=== PATIENT | male | born 1950 | race Caucasian/White ===

== ENCOUNTER 2018-02-24 12:58 | Inpatient (IN) | payer BC, MEDICARE ==
[2018-02-24] MEDS ORDERED: Ketorolac 30 MG/ML SDV IM STA (13:21)
--- NOTE | 2018-02-24 13:37 | EDM.PDOC ---
ED HPI GENERAL MEDICAL PROBLEM - General Chief Complaint: Back Pain or Injury Stated Complaint: FELL-INJURED RIBS Time Seen by Provider: 02/24/18 12:58 Source of Information: Reports: Patient, Family History Limitations: Reports: Physical Impairment, Respiratory Distress (right shoulder when taking a deep breath.) - History of Present Illness INITIAL COMMENTS - FREE TEXT/NARRATIVE: 67 years old w m with chronic low back pain, came to the ed with his by PC after he fell 8 feet from a ladder. Pt denied LOC, is not taking ASA or Coumadin. Worst pain is between his shoulders. No ant chest pain, no diaphoresis , no N/V/D no dizziness, pt took Hydrocodon and Ultram GAUGE CHECKER. No other acute medical issues. BP 132/71 RR 18 Pulse ox 97% on RA. Temp 36.8 Pulse 81 Onset: Today Onset Date: 02/24/18 Onset Time: 11:00 Duration: Hour(s):, Getting Worse, Intermittent Location: Reports: Chest, Upper Extremity, Right Quality: Reports: Ache, Dull, Throbbing Severity: Moderate Improves with: Reports: Rest Worsens with: Reports: Movement Context: Reports: Trauma (fell 10 feet from a ladder) Associated Symptoms: Reports: Chest Pain, Shortness of Breath Treatments GAUGE CHECKER: Reports: Other (see below) (hydrocodon) - Related Data Allergies Allergy/AdvReac Type Severity Reaction Status Date / Time Iodinated Contrast- Oral and Allergy Severe Bronchospas Verified 02/24/18 13:08 IV Dye ms [Iodinated Contrast Media - IV Dye] cephalexin Allergy Intermediate Hives Verified 02/24/18 13:08 mupirocin [From Bactroban] Allergy Unknown Cannot Verified 02/24/18 13:08 Remember Home Meds: Home Meds Acetaminophen/HYDROcodone [[place] 325-5 MG] 1 - 2 tab PO Q4H PRN 11/28/15 [ History] Chondroitin/Glucosamine [Glucosamine-Chondroitin] 1 cap PO BID 11/28/15 [History ] Desoximetasone [Topicort 0.25% Crm] 1 applic TOP BID 11/28/15 [History] Esomeprazole Magnesium [Nexium] 40 mg PO DAILY 11/28/15 [History] Meloxicam [Mobic] 7.5 mg PO BIDMEALS 11/28/15 [History] tiZANidine [Zanaflex] 4 mg PO Q8H 11/28/15 [History] traMADol [Ultram] 50 - 100 mg PO Q8H PRN 11/28/15 [History] Acetaminophen/Diphenhydramine [Tylenol Pm Ex-Strength Caplet] 1 each PO BEDTIME 11/29/15 [History] Past Medical History HEENT History: Reports: Impaired Vision Cardiovascular History: Reports: High Cholesterol Respiratory History: Reports: None Gastrointestinal History: Reports: Other (See Below) Other Gastrointestinal History: DYSPEPSIA Genitourinary History: Reports: None Musculoskeletal History: Reports: Back Pain, Chronic Neurological History: Reports: None Psychiatric History: Reports: None Endocrine/Metabolic History: Reports: None Hematologic History: Reports: Iron Deficiency Immunologic History: Reports: None Oncologic (Cancer) History: Reports: None Dermatologic History: Reports: None - Infectious Disease History Infectious Disease History: Reports: Chicken Pox, Measles, Mumps - Past Surgical History Neurological Surgical History: Reports: None, Other (See Below) Social & Family History - Caffeine Use Caffeine Use: Reports: Coffee, Soda ED ROS GENERAL - Review of Systems Review Of Systems: See Below Constitutional: Reports: No Symptoms HEENT: Reports: No Symptoms Respiratory: Reports: Shortness of Breath Cardiovascular: Reports: No Symptoms Endocrine: Reports: No Symptoms GI/Abdominal: Reports: No Symptoms : Reports: No Symptoms Musculoskeletal: Reports: Neck Pain, Shoulder Pain (right), Muscle Pain Skin: Reports: Lesions (abrasion right post chest) Neurological: Reports: No Symptoms Psychiatric: Reports: No Symptoms Hematologic/Lymphatic: Reports: No Symptoms Immunologic: Reports: No Symptoms ED EXAM, UPPER BACK/NECK PAIN - Physical Exam Exam: See Below Exam Limited By: Physical Impairment (right shoulder pain) General Appearance: Alert, Moderate Distress Eye Exam: Bilateral Eye: Normal Inspection Ears Exam: Normal External Exam, Normal Canal Nose Exam: Normal Inspection, Normal Mucousa, No Blood Throat/Mouth Exam: Normal Inspection, Normal Lips, Normal Voice, No Airway Compromise Head Exam: Atraumatic, Normocephalic Neck Exam: Non-Tender, Full Range of Motion, Limited Range of Motion Cardiovascular/Respiratory: Regular Rate, Rhythm GI/Abdominal: Normal Bowel Sounds (Male) Exam: No Hernia Rectal (Males) Exam: Deferred Back Exam: Normal Inspection, Decreased Range of Motion (right shoulder) Extremities: Normal Inspection, Limited Range of Motion (right shoulder due to pain) 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 Pt denied LOC, is not taking ASA or Coumadin. Worst pain is between his shoulders. No ant chest pain, no diaphoresis , no N/V/D no dizziness, pt took Hydrocodon and Ultram GAUGE CHECKER. No other acute medical issues. BP 132/71 RR 18 Pulse ox 97% on RA. Temp 36.8 Pulse 81 PE: WNWD WM with right chest wall, shoulder and upper back pain with decr. breath sounds right lung, Imaging: CT chest: Rib Fx 1-7 and 12, right scapula Fx and small/moderate right pneumothorax. CT Head and neck were nl. Labs: CBC nl except WBC was 14.7 BMP nl except BUN was 24, Cr 1.p Glc 122 CK 346 Impression: Fall from a ladder with Rib fxs 1-7 and 12. Small/Moderate right pneumothroax, right scapula Fx. Tx: Perccet. Toradol, Chest tube placement by Dr. Copeland 2.59 pm Consultation: Dr. Copeland, Trauma Surgeon: Will see the Pt in 20 min in the ED. 3.01 pm Consultation: Dr. Mcclellan, Ortho: Nothing surgical. Pt needs an shoulder immobilizer Reexam: Pt improved Plan: Admit to M/S inpatient. Dr. Copeland will write the admission orders. Family agreed Last Recorded V/S: Last Vital Signs Temp 36.9 C 02/24/18 16:32 Pulse 96 02/24/18 16:32 Resp 16 02/24/18 16:32 BP 135/77 02/24/18 16:32 Pulse Ox 96 02/24/18 16:32 - Orders/Labs/Meds Orders: Active Orders 24 hr Category Date Time Status Cervical Spine wo Cont [CT] Stat Exams 02/24/18 13:28 Taken Chest 1V Frontal [CR] Stat Exams 02/24/18 15:55 Taken Chest wo Cont [CT] Stat Exams 02/24/18 13:28 Taken Head wo Cont [CT] Stat Exams 02/24/18 13:35 Taken Medication Orders Desoximetasone (Topicort 0.25% Crm) 0 gm TOP BID [facility] Enoxaparin Sodium (Lovenox) 40 mg SUBCUT Q24H WHIT Hydromorphone HCl (Dilaudid) 2 mg IVPUSH Q2H PRN PRN Reason: Pain Last Admin: 02/24/18 17:29 Dose: 2 mg Ketorolac Tromethamine (Toradol) 30 mg IVPUSH Q6H WHIT Stop: 03/01/18 19:31 Pantoprazole Sodium (Protonix) 40 mg PO 0600 WHIT Sodium Chloride (Saline Flush) 10 ml FLUSH ASDIRECTED PRN PRN Reason: Keep Vein Open Last Admin: 02/24/18 17:33 Dose: 10 ml Tramadol HCl (Ultram) 50 mg PO Q8H PRN PRN Reason: Pain (moderate 4-6) Last Admin: 02/24/18 17:08 Dose: 50 mg Labs: Laboratory Tests 02/24/18 02/24/18 02/24/18 Range/Units 14:25 15:02 15:02 WBC 14.9 H (4.5-12.0) X10-3/uL RBC 4.81 (4.30-5.75) x10(6)uL Hgb 14.8 (11.5-15.5) g/dL Hct 43.2 (30.0-51.3) % MCV 89.8 (80-96) fL MCH 30.7 (27.7-33.6) pg MCHC 34.3 (32.2-35.4) g/dL RDW 12.7 (11.5-15.5) % Plt Count 181 (125-369) X10(3)uL MPV 8.1 (7.4-10.4) fL Add Manual Diff Yes Neutrophils % (Manual) 82 (46-82) % Band Neutrophils % 5 (0-6) % Lymphocytes % (Manual) 9 L (13-37) % Monocytes % (Manual) 4 (4-12) % PT 10.4 (8.7-11.1) INR 1.07 (0.89-1.13) Sodium (135-145) mmol/L Potassium (3.5-5.3) mmol/L Chloride (100-110) mmol/L Carbon Dioxide (21-32) mmol/L BUN (7-18) mg/dL Creatinine (0.70-1.30) mg/dL Est Cr Clr Drug Dosing Estimated GFR (MDRD) (>60) BUN/Creatinine Ratio (9-20) Glucose (80-116) mg/dL Calcium (8.6-10.2) mg/dL Creatine Kinase (60-160) IU/L Urine Color Yellow (YELLOW) Urine Appearance Slightly cloudy (CLEAR) Urine pH 7.0 H (5.0-6.5) Ur Specific [place] 1.015 (1.010-1.025) Urine Protein Negative (NEGATIVE) mg/dL Urine Glucose (UA) Normal (NEGATIVE) mg/dL Urine Ketones Negative (NEGATIVE) mg/dL Urine Occult Blood Negative (NEGATIVE) Urine Nitrite Negative (NEGATIVE) Urine Bilirubin Negative (NEGATIVE) Urine Urobilinogen Normal (NEGATIVE) mg/dL Ur Leukocyte Esterase Negative (NEGATIVE) Urine RBC 0-5 (0) Urine WBC 0-5 (0) Ur Squamous Epith Cells Rare (NS,R,O) Urine Bacteria Few H (NS) Coarse Granular Casts Few H (NS) 02/24/18 02/24/18 Range/Units 15:02 15:02 WBC (4.5-12.0) X10-3/uL RBC (4.30-5.75) x10(6)uL Hgb (11.5-15.5) g/dL Hct (30.0-51.3) % MCV (80-96) fL MCH (27.7-33.6) pg MCHC (32.2-35.4) g/dL RDW (11.5-15.5) % Plt Count (125-369) X10(3)uL MPV (7.4-10.4) fL Add Manual Diff Neutrophils % (Manual) (46-82) % Band Neutrophils % (0-6) % Lymphocytes % (Manual) (13-37) % Monocytes % (Manual) (4-12) % PT (8.7-11.1) INR (0.89-1.13) Sodium 137 (135-145) mmol/L Potassium 4.4 (3.5-5.3) mmol/L Chloride 101 (100-110) mmol/L Carbon Dioxide 29 (21-32) mmol/L BUN 27 H (7-18) mg/dL Creatinine 1.0 (0.70-1.30) mg/dL Est Cr Clr Drug Dosing TNP Estimated GFR (MDRD) > 60 (>60) BUN/Creatinine Ratio 27.0 H (9-20) Glucose 122 H (80-116) mg/dL Calcium 9.0 (8.6-10.2) mg/dL Creatine Kinase 361 H* (60-160) IU/L Urine Color (YELLOW) Urine Appearance (CLEAR) Urine pH (5.0-6.5) Ur Specific [place]amps (1.010-1.025) Urine Protein (NEGATIVE) mg/dL Urine Glucose (UA) (NEGATIVE) mg/dL Urine Ketones (NEGATIVE) mg/dL Urine Occult Blood (NEGATIVE) Urine Nitrite (NEGATIVE) Urine Bilirubin (NEGATIVE) Urine Urobilinogen (NEGATIVE) mg/dL Ur Leukocyte Esterase (NEGATIVE) Urine RBC (0) Urine WBC (0) Ur Squamous Epith Cells (NS,R,O) Urine Bacteria (NS) Coarse Granular Casts (NS) Meds: Medications Generic Name Dose Route Start Last Admin Trade Name Freq PRN Reason Stop Dose Admin Desoximetasone 0 gm 02/25/18 09:00 Topicort 0.25% Crm TOP BID WHIT Enoxaparin Sodium 40 mg 02/25/18 09:00 Lovenox SUBCUT Q24H WHIT Hydromorphone HCl 2 mg 02/24/18 16:30 02/24/18 17:29 Dilaudid IVPUSH 2 mg Q2H PRN Administration Pain Ketorolac Tromethamine 30 mg 02/24/18 19:30 Toradol IVPUSH 03/01/18 19:31 Q6H WHIT Pantoprazole Sodium 40 mg 02/25/18 06:00 Protonix PO 0600 WHIT Sodium Chloride 10 ml 02/24/18 16:13 02/24/18 17:33 Saline Flush FLUSH 10 ml ASDIRECTED PRN Administration Keep Vein Open Tramadol HCl 50 mg 02/24/18 16:21 02/24/18 17:08 Ultram PO 50 mg Q8H PRN Administration Pain (moderate 4-6) Discontinued Medications Generic Name Dose Route Start Last Admin Trade Name Freq PRN Reason Stop Dose Admin Ketorolac Tromethamine 15 mg 02/24/18 13:21 02/24/18 13:35 Toradol IM 02/24/18 13:22 15 mg ONETIME STA Administration Oxycodone/Acetaminophen 1 tab 02/24/18 14:14 02/24/18 14:20 Percocet 325-5 Mg PO 02/24/18 14:15 1 tab ONETIME STA Administration Departure - Departure Time of Disposition: 17:00 Disposition: Admitted As Inpatient 66 Condition: Fair Clinical Impression: Trauma - Discharge Information - My Orders Last 24 Hours: My Active Orders 02/24/18 13:28 Cervical Spine wo Cont [CT] Stat Chest wo Cont [CT] Stat 02/24/18 13:35 Head wo Cont [CT] Stat 02/24/18 15:55 Chest 1V Frontal [CR] Stat - Assessment/Plan Last 24 Hours: My Active Orders 02/24/18 13:28 Cervical Spine wo Cont [CT] Stat Chest wo Cont [CT] Stat 02/24/18 13:35 Head wo Cont [CT] Stat 02/24/18 15:55 Chest 1V Frontal [CR] Stat
[2018-02-24] MEDS ORDERED: Acetaminophen/oxyCODONE 325-5 MG Tab PO STA (14:14)
[2018-02-24] MEDS: traMADol 50 MG Tab PO PRN (17:08)
[2018-02-24] MEDS: HYDROmorphone 2 MG/ML SDV IVPUSH PRN ×2 (17:29→22:25)
[2018-02-24] MEDS: Sodium Chloride 0.9% 10 ML Syringe FLUSH PRN ×3 (17:33→22:26)
[2018-02-24] MEDS: Ketorolac 30 MG/ML SDV IVPUSH SCH (20:07)
[2018-02-24] MEDS ORDERED: Non-Formulary Medication 1 Each (Esomeprazole Magnesium [Nexium] 40 MG) PO SCH (21:00)
[2018-02-25] MEDS: traMADol 50 MG Tab PO PRN ×2 (01:18→09:42)
[2018-02-25] MEDS: Ketorolac 30 MG/ML SDV IVPUSH SCH ×4 (01:23→19:13)
[2018-02-25] MEDS: Sodium Chloride 0.9% 10 ML Syringe FLUSH PRN ×5 (01:25→21:08)
[2018-02-25] MEDS: HYDROmorphone 2 MG/ML SDV IVPUSH PRN ×4 (04:31→21:07)
[2018-02-25] MEDS: Pantoprazole 40 MG Tab.CR PO SCH (05:24)
[2018-02-25] MEDS: Enoxaparin 40 MG/0.4 ML Syringe SUBCUT SCH (08:17)
[2018-02-25] MEDS ORDERED: DESOXIMETASONE 0.25% TOP SCH (09:00)
--- NOTE | 2018-02-25 15:06 | PCM.HP ---
H&P History of Present Illness - General Date of Service: 02/24/18 Admit Problem/Dx: Admission Diagnosis/Problem Admission Diagnosis/Problem Pneumothorax on right Source of Information: Patient, Family History Limitations: Reports: No Limitations - History of Present Illness Onset of Symptoms: Reports: Today Duration of Symptoms: Reports: Hour(s): (3) Location: Reports: Chest (pain and SOB after falling 8 feet from ladder and landing on right shoulder area) Quality: Reports: Sharp Severity: Severe Improves with: Reports: Medication Worsens with: Reports: Movement right side chest Pain Score (Numeric/FACES): 10 - Related Data Allergies/Adverse Reactions: Allergies Allergy/AdvReac Type Severity Reaction Status Date / Time Iodinated Contrast- Oral and Allergy Severe Bronchospas Verified 02/24/18 13:08 IV Dye ms [Iodinated Contrast Media - IV Dye] cephalexin Allergy Intermediate Hives Verified 02/24/18 13:08 mupirocin [From Bactroban] Allergy Unknown Cannot Verified 02/24/18 13:08 Remember Home Medications: Home Meds Acetaminophen/HYDROcodone [[place] 325-5 MG] 1 tab PO BID@02,12 PRN 11/28/15 [ History] Chondroitin/Glucosamine [Glucosamine-Chondroitin] 1 cap PO BID 11/28/15 [History ] Desoximetasone [Topicort 0.25% Crm] 1 applic TOP BID 11/28/15 [History] Esomeprazole Magnesium [Nexium] 40 mg PO DAILY 11/28/15 [History] Meloxicam [Mobic] 15 mg PO BEDTIME 11/28/15 [History] tiZANidine [Zanaflex] 4 mg PO Q8H 11/28/15 [History] traMADol [Ultram] 100 mg PO TID@06,18,21 11/28/15 [History] Acetaminophen/Diphenhydramine [Tylenol Pm Ex-Strength Caplet] 1 each PO BEDTIME 11/29/15 [History] Acetaminophen/HYDROcodone [[place] 325-5 MG] 1 tab PO DAILY PRN 02/25/18 [History] Ibuprofen/Diphenhydramine Cit [Advil Pm Caplet] 1 tab PO BEDTIME PRN 02/25/18 [ History] Past Medical History HEENT History: Reports: Impaired Vision Cardiovascular History: Reports: High Cholesterol Respiratory History: Reports: None Gastrointestinal History: Reports: Other (See Below) Other Gastrointestinal History: DYSPEPSIA Genitourinary History: Reports: None Musculoskeletal History: Reports: Back Pain, Chronic Neurological History: Reports: None Psychiatric History: Reports: None Endocrine/Metabolic History: Reports: None Hematologic History: Reports: Iron Deficiency Immunologic History: Reports: None Oncologic (Cancer) History: Reports: None Dermatologic History: Reports: None - Infectious Disease History Infectious Disease History: Reports: Chicken Pox, Measles, Mumps - Past Surgical History Neurological Surgical History: Reports: None, Other (See Below) Social & Family History - Family History Family Medical History: Noncontributory - Tobacco Use Smoking Status *Q: Never Smoker Second Hand Smoke Exposure: No - Caffeine Use Caffeine Use: Reports: Coffee, Soda Other Caffeine Use: 1 cup - Recreational Drug Use Recreational Drug Use: No H&P Review of Systems - Review of Systems: Review Of Systems: See Below General: Reports: No Symptoms HEENT: Reports: No Symptoms Pulmonary: Reports: Shortness of Breath Cardiovascular: Reports: Chest Pain Gastrointestinal: Reports: No Symptoms Genitourinary: Reports: No Symptoms Musculoskeletal: Reports: Back Pain (chronic) Neurological: Reports: No Symptoms Exam - Exam Exam: See Below - Vital Signs Vital Signs: Last Vital Signs Temp 99.1 F 02/25/18 12:00 Pulse 80 02/25/18 12:00 Resp 17 02/25/18 12:00 BP 119/68 02/25/18 12:00 Pulse Ox 97 02/25/18 12:00 Weight: 87.997 kg - Exam General: Alert, Oriented HEENT: PERRLA Neck: Supple, Trachea Midline. No: JVD Lungs: Decreased Breath Sounds (on right), Other (Right chest wall is tender laterally, has bruise and abrasion where he landed on ladder) Cardiovascular: Regular Rate, Regular Rhythm GI/Abdominal Exam: Soft, Non-Tender, No Mass. No: Distended, Hernia Neurological: Cranial Nerves Intact Neuro Extensive - Mental Status: Alert, Oriented x3 - Patient Data Lab Results Last 24 hrs: Laboratory Results - last 24 hr 02/24/18 02/24/18 02/24/18 Range/Units 14:25 15:02 15:02 WBC 14.9 H (4.5-12.0) X10-3/uL RBC 4.81 (4.30-5.75) x10(6)uL Hgb 14.8 (11.5-15.5) g/dL Hct 43.2 (30.0-51.3) % MCV 89.8 (80-96) fL MCH 30.7 (27.7-33.6) pg MCHC 34.3 (32.2-35.4) g/dL RDW 12.7 (11.5-15.5) % Plt Count 181 (125-369) X10(3)uL MPV 8.1 (7.4-10.4) fL Add Manual Diff Yes Neutrophils % (Manual) 82 (46-82) % Band Neutrophils % 5 (0-6) % Lymphocytes % (Manual) 9 L (13-37) % Monocytes % (Manual) 4 (4-12) % PT 10.4 (8.7-11.1) INR 1.07 (0.89-1.13) Sodium (135-145) mmol/L Potassium (3.5-5.3) mmol/L Chloride (100-110) mmol/L Carbon Dioxide (21-32) mmol/L BUN (7-18) mg/dL Creatinine (0.70-1.30) mg/dL Est Cr Clr Drug Dosing Estimated GFR (MDRD) (>60) BUN/Creatinine Ratio (9-20) Glucose (80-116) mg/dL Calcium (8.6-10.2) mg/dL Creatine Kinase (60-160) IU/L Urine Color Yellow (YELLOW) Urine Appearance Slightly cloudy (CLEAR) Urine pH 7.0 H (5.0-6.5) Ur Specific [place] 1.015 (1.010-1.025) Urine Protein Negative (NEGATIVE) mg/dL Urine Glucose (UA) Normal (NEGATIVE) mg/dL Urine Ketones Negative (NEGATIVE) mg/dL Urine Occult Blood Negative (NEGATIVE) Urine Nitrite Negative (NEGATIVE) Urine Bilirubin Negative (NEGATIVE) Urine Urobilinogen Normal (NEGATIVE) mg/dL Ur Leukocyte Esterase Negative (NEGATIVE) Urine RBC 0-5 (0) Urine WBC 0-5 (0) Ur Squamous Epith Cells Rare (NS,R,O) Urine Bacteria Few H (NS) Coarse Granular Casts Few H (NS) 02/24/18 02/24/18 02/25/18 Range/Units 15:02 15:02 06:20 WBC 8.2 (4.5-12.0) X10-3/uL RBC 4.18 L (4.30-5.75) x10(6)uL Hgb 13.2 (11.5-15.5) g/dL Hct 37.9 (30.0-51.3) % MCV 90.8 (80-96) fL MCH 31.6 (27.7-33.6) pg MCHC 34.8 (32.2-35.4) g/dL RDW 12.5 (11.5-15.5) % Plt Count 153 (125-369) X10(3)uL MPV (7.4-10.4) fL Add Manual Diff Neutrophils % (Manual) (46-82) % Band Neutrophils % (0-6) % Lymphocytes % (Manual) (13-37) % Monocytes % (Manual) (4-12) % PT (8.7-11.1) INR (0.89-1.13) Sodium 137 (135-145) mmol/L Potassium 4.4 (3.5-5.3) mmol/L Chloride 101 (100-110) mmol/L Carbon Dioxide 29 (21-32) mmol/L BUN 27 H (7-18) mg/dL Creatinine 1.0 (0.70-1.30) mg/dL Est Cr Clr Drug Dosing TNP Estimated GFR (MDRD) > 60 (>60) BUN/Creatinine Ratio 27.0 H (9-20) Glucose 122 H (80-116) mg/dL Calcium 9.0 (8.6-10.2) mg/dL Creatine Kinase 361 H* (60-160) IU/L Urine Color (YELLOW) Urine Appearance (CLEAR) Urine pH (5.0-6.5) Ur Specific [place] (1.010-1.025) Urine Protein (NEGATIVE) mg/dL Urine Glucose (UA) (NEGATIVE) mg/dL Urine Ketones (NEGATIVE) mg/dL Urine Occult Blood (NEGATIVE) Urine Nitrite (NEGATIVE) Urine Bilirubin (NEGATIVE) Urine Urobilinogen (NEGATIVE) mg/dL Ur Leukocyte Esterase (NEGATIVE) Urine RBC (0) Urine WBC (0) Ur Squamous Epith Cells (NS,R,O) Urine Bacteria (NS) Coarse Granular Casts (NS) Result Diagrams: 02/25/18 06:20 02/24/18 15:02 Imaging Impressions Last 24 hrs: CT scan of head and neck without acute injury. CT Chest shows multiple rib fx and moderate PTX on right Problem List Initiated/Reviewed/Updated: Yes Orders Last 24hrs: Active Orders 24 hr Category Date Time Status Patient Status [ADT] Routine ADT 02/24/18 16:14 Active Antiembolic Devices [RC] .Routine Care 02/24/18 16:17 Active Oxygen Therapy [RC] PRN Care 02/24/18 16:14 Active RT Incentive Spirometry [RC] Q2HWA Care 02/24/18 16:13 Active Up With Assistance [RC] ASDIRECTED Care 02/24/18 16:13 Active VTE/DVT Education [RC] Click to Edit Care 02/24/18 16:17 Active Vital Signs [RC] Q4HR Care 02/24/18 16:14 Active Regular Diet [DIET] Diet 02/24/18 Dinner Active CXR [Chest 1V Frontal] [CR] Stat Exams 02/26/18 07:00 Ordered Chest 1V Frontal [CR] Stat Exams 02/24/18 15:55 Taken Enoxaparin [Lovenox] Med 02/25/18 09:00 Active 40 mg SUBCUT Q24H HYDROmorphone [Dilaudid] Med 02/24/18 16:30 Active 2 mg IVPUSH Q2H PRN Ketorolac [Toradol] Med 02/24/18 19:30 Active 30 mg IVPUSH Q6H Pantoprazole [ProTONIX] Med 02/25/18 06:00 Active 40 mg PO 0600 Sodium Chloride 0.9% [Saline Flush] Med 02/24/18 16:13 Active 10 ml FLUSH ASDIRECTED PRN traMADol [Ultram] Med 02/24/18 16:21 Active 50 mg PO Q8H PRN DVT/VTE Prophylaxis Reflex [OM.PC] Per Unit Routine Oth 02/24/18 16:17 Ordered Sequential Compression Device [OM.PC] Routine Oth 02/24/18 16:13 Ordered Resuscitation Status Routine Resus Stat 02/24/18 16:13 Ordered Medication Orders Enoxaparin Sodium (Lovenox) 40 mg SUBCUT Q24H WHIT Last Admin: 02/25/18 08:17 Dose: 40 mg Hydromorphone HCl (Dilaudid) 2 mg IVPUSH Q2H PRN PRN Reason: Pain Last Admin: 02/25/18 10:37 Dose: 2 mg Admin: 02/25/18 04:31 Dose: 2 mg Admin: 02/24/18 22:25 Dose: 2 mg Admin: 02/24/18 17:29 Dose: 2 mg Ketorolac Tromethamine (Toradol) 30 mg IVPUSH Q6H WHIT Stop: 03/01/18 19:31 Last Admin: 02/25/18 12:50 Dose: 30 mg Admin: 02/25/18 06:30 Dose: 30 mg Admin: 02/25/18 01:23 Dose: 30 mg Admin: 02/24/18 20:07 Dose: 30 mg Pantoprazole Sodium (Protonix) 40 mg PO 0600 [facility] Last Admin: 02/25/18 05:24 Dose: 40 mg Sodium Chloride (Saline Flush) 10 ml FLUSH ASDIRECTED PRN PRN Reason: Keep Vein Open Last Admin: 02/25/18 06:30 Dose: 10 ml Admin: 02/25/18 04:32 Dose: 10 ml Admin: 02/25/18 01:25 Dose: 10 ml Admin: 02/24/18 22:26 Dose: 10 ml Admin: 02/24/18 20:09 Dose: 10 ml Admin: 02/24/18 17:33 Dose: 10 ml Tramadol HCl (Ultram) 50 mg PO Q8H PRN PRN Reason: Pain (moderate 4-6) Last Admin: 02/25/18 09:42 Dose: 50 mg Admin: 02/25/18 01:18 Dose: 50 mg Admin: 02/24/18 17:08 Dose: 50 mg Assessment/Plan Comment:: Fall with multiple right rib fractures and pneumothorax Will admit for Chest tube and pain management
--- NOTE | 2018-02-25 15:14 | PCM.PN ---
- General Info Date of Service: 02/25/18 Admission Dx/Problem (Free Text): Admission Diagnosis/Problem Admission Diagnosis/Problem Pneumothorax on right Functional Status: Reports: Pain Controlled, Tolerating Diet, Urinating, Incentive Spirometry (over 1999) - Review of Systems Pulmonary: Reports: Pleuritic Chest Pain, Other (red sorous drainage from CT, no air leak) Cardiovascular: Reports: Chest Pain (with deep breathing or moving, adequately controlled on current meds) Gastrointestinal: Reports: No Symptoms - Patient Data Vitals - Most Recent: Last Vital Signs Temp 99.1 F 02/25/18 12:00 Pulse 80 02/25/18 12:00 Resp 17 02/25/18 12:00 BP 119/68 02/25/18 12:00 Pulse Ox 97 02/25/18 12:00 Weight - Most Recent: 87.997 kg I&O - Last 24 Hours: Intake & Output 02/25/18 02/25/18 02/25/18 06:59 14:59 22:59 Intake Total 200 800 Output Total 150 300 Balance 50 500 Lab Results Last 24 Hours: Laboratory Results - last 24 hr 02/24/18 02/24/18 02/24/18 Range/Units 14:25 15:02 15:02 WBC 14.9 H (4.5-12.0) X10-3/uL RBC 4.81 (4.30-5.75) x10(6)uL Hgb 14.8 (11.5-15.5) g/dL Hct 43.2 (30.0-51.3) % MCV 89.8 (80-96) fL MCH 30.7 (27.7-33.6) pg MCHC 34.3 (32.2-35.4) g/dL RDW 12.7 (11.5-15.5) % Plt Count 181 (125-369) X10(3)uL MPV 8.1 (7.4-10.4) fL Add Manual Diff Yes Neutrophils % (Manual) 82 (46-82) % Band Neutrophils % 5 (0-6) % Lymphocytes % (Manual) 9 L (13-37) % Monocytes % (Manual) 4 (4-12) % PT 10.4 (8.7-11.1) INR 1.07 (0.89-1.13) Sodium (135-145) mmol/L Potassium (3.5-5.3) mmol/L Chloride (100-110) mmol/L Carbon Dioxide (21-32) mmol/L BUN (7-18) mg/dL Creatinine (0.70-1.30) mg/dL Est Cr Clr Drug Dosing Estimated GFR (MDRD) (>60) BUN/Creatinine Ratio (9-20) Glucose (80-116) mg/dL Calcium (8.6-10.2) mg/dL Creatine Kinase (60-160) IU/L Urine Color Yellow (YELLOW) Urine Appearance Slightly cloudy (CLEAR) Urine pH 7.0 H (5.0-6.5) Ur Specific [place] 1.015 (1.010-1.025) Urine Protein Negative (NEGATIVE) mg/dL Urine Glucose (UA) Normal (NEGATIVE) mg/dL Urine Ketones Negative (NEGATIVE) mg/dL Urine Occult Blood Negative (NEGATIVE) Urine Nitrite Negative (NEGATIVE) Urine Bilirubin Negative (NEGATIVE) Urine Urobilinogen Normal (NEGATIVE) mg/dL Ur Leukocyte Esterase Negative (NEGATIVE) Urine RBC 0-5 (0) Urine WBC 0-5 (0) Ur Squamous Epith Cells Rare (NS,R,O) Urine Bacteria Few H (NS) Coarse Granular Casts Few H (NS) 02/24/18 02/24/18 02/25/18 Range/Units 15:02 15:02 06:20 WBC 8.2 (4.5-12.0) X10-3/uL RBC 4.18 L (4.30-5.75) x10(6)uL Hgb 13.2 (11.5-15.5) g/dL Hct 37.9 (30.0-51.3) % MCV 90.8 (80-96) fL MCH 31.6 (27.7-33.6) pg MCHC 34.8 (32.2-35.4) g/dL RDW 12.5 (11.5-15.5) % Plt Count 153 (125-369) X10(3)uL MPV (7.4-10.4) fL Add Manual Diff Neutrophils % (Manual) (46-82) % Band Neutrophils % (0-6) % Lymphocytes % (Manual) (13-37) % Monocytes % (Manual) (4-12) % PT (8.7-11.1) INR (0.89-1.13) Sodium 137 (135-145) mmol/L Potassium 4.4 (3.5-5.3) mmol/L Chloride 101 (100-110) mmol/L Carbon Dioxide 29 (21-32) mmol/L BUN 27 H (7-18) mg/dL Creatinine 1.0 (0.70-1.30) mg/dL Est Cr Clr Drug Dosing TNP Estimated GFR (MDRD) > 60 (>60) BUN/Creatinine Ratio 27.0 H (9-20) Glucose 122 H (80-116) mg/dL Calcium 9.0 (8.6-10.2) mg/dL Creatine Kinase 361 H* (60-160) IU/L Urine Color (YELLOW) Urine Appearance (CLEAR) Urine pH (5.0-6.5) Ur Specific [place] (1.010-1.025) Urine Protein (NEGATIVE) mg/dL Urine Glucose (UA) (NEGATIVE) mg/dL Urine Ketones (NEGATIVE) mg/dL Urine Occult Blood (NEGATIVE) Urine Nitrite (NEGATIVE) Urine Bilirubin (NEGATIVE) Urine Urobilinogen (NEGATIVE) mg/dL Ur Leukocyte Esterase (NEGATIVE) Urine RBC (0) Urine WBC (0) Ur Squamous Epith Cells (NS,R,O) Urine Bacteria (NS) Coarse Granular Casts (NS) Med Orders - Current: Current Medications Enoxaparin Sodium (Lovenox) 40 mg SUBCUT Q24H [facility] Last Admin: 02/25/18 08:17 Dose: 40 mg Hydromorphone HCl (Dilaudid) 2 mg IVPUSH Q2H PRN PRN Reason: Pain Last Admin: 02/25/18 10:37 Dose: 2 mg Ketorolac Tromethamine (Toradol) 30 mg IVPUSH Q6H [facility] Stop: 03/01/18 19:31 Last Admin: 02/25/18 12:50 Dose: 30 mg Pantoprazole Sodium (Protonix) 40 mg PO 0600 [facility] Last Admin: 02/25/18 05:24 Dose: 40 mg Sodium Chloride (Saline Flush) 10 ml FLUSH ASDIRECTED PRN PRN Reason: Keep Vein Open Last Admin: 02/25/18 06:30 Dose: 10 ml Tramadol HCl (Ultram) 50 mg PO Q8H PRN PRN Reason: Pain (moderate 4-6) Last Admin: 02/25/18 09:42 Dose: 50 mg Discontinued Medications Desoximetasone (Topicort 0.25% Crm) 0 gm TOP BID WHIT Last Admin: 02/25/18 10:22 Dose: Not Given Ketorolac Tromethamine (Toradol) 15 mg IM ONETIME STA Stop: 02/24/18 13:22 Last Admin: 02/24/18 13:35 Dose: 15 mg Oxycodone/Acetaminophen (Percocet 325-5 Mg) 1 tab PO ONETIME STA Stop: 02/24/18 14:15 Last Admin: 02/24/18 14:20 Dose: 1 tab - Exam General: Alert, Oriented Lungs: Clear to Auscultation Cardiovascular: Regular Rate, Regular Rhythm GI/Abdominal Exam: Soft, Non-Tender - Problem List Review Problem List Initiated/Reviewed/Updated: Yes - My Orders Last 24 Hours: My Active Orders 02/24/18 16:13 RT Incentive Spirometry [RC] Q2HWA Up With Assistance [RC] ASDIRECTED Sodium Chloride 0.9% [Saline Flush] 10 ml FLUSH ASDIRECTED PRN Sequential Compression Device [OM.PC] Routine Resuscitation Status Routine 02/24/18 16:14 Patient Status [ADT] Routine Oxygen Therapy [RC] PRN Vital Signs [RC] Q4HR 02/24/18 16:17 Antiembolic Devices [RC] .Routine VTE/DVT Education [RC] Click to Edit DVT/VTE Prophylaxis Reflex [OM.PC] Per Unit Routine 02/24/18 16:21 traMADol [Ultram] 50 mg PO Q8H PRN 02/24/18 16:30 HYDROmorphone [Dilaudid] 2 mg IVPUSH Q2H PRN 02/24/18 19:30 Ketorolac [Toradol] 30 mg IVPUSH Q6H 02/24/18 Dinner Regular Diet [DIET] 02/25/18 06:00 Pantoprazole [ProTONIX] 40 mg PO 0600 02/25/18 09:00 Enoxaparin [Lovenox] 40 mg SUBCUT Q24H 02/26/18 07:00 CXR [Chest 1V Frontal] [CR] Stat - Plan Plan:: Fall with multiple right rib fractures and pneumothorax Will admit for Chest tube and pain management Cont current care, recheck CRX in am
[2018-02-25] MEDS: traMADol 50 MG Tab PO SCH ×2 (17:41→23:11)
--- NOTE | 2018-02-25 21:49 | OR ---
DATE OF OPERATION: 02/24/2018 SURGEON: Clovis Copeland MD PREOPERATIVE DIAGNOSIS: Right pneumothorax. POSTOPERATIVE DIAGNOSIS: Right pneumothorax. PROCEDURE: Insertion of chest tube, right. ANESTHESIA: Local. PROCEDURE IN DETAIL: In the emergency room with the patient lying in his left side and arm raised, the right lateral chest wall was prepped with Betadine and draped sterilely. 1% lidocaine was used for local anesthesia. A small incision was made at the level of the nipple in the anterior axillary line. The 25-gauge needle was used to anesthetize between the ribs, and I was able to aspirate back air bubbles. A hemostat was inserted and a gush of air present. A 26-Tunisian chest tube was inserted with good air return. Chest tube was secured to the skin with 0 Ethilon. Vaseline gauze and a dressing were applied. Chest tube was hooked to suction. Postprocedure chest x-ray shows good position of the tube and resolution of the pneumothorax. /[id number] SILVER/LIANA
[2018-02-26] MEDS: Ketorolac 30 MG/ML SDV IVPUSH SCH ×4 (01:19→19:49)
[2018-02-26] MEDS: Sodium Chloride 0.9% 10 ML Syringe FLUSH PRN ×7 (01:20→19:51)
[2018-02-26] MEDS: HYDROmorphone 2 MG/ML SDV IVPUSH PRN ×3 (04:40→12:52)
[2018-02-26] MEDS: Pantoprazole 40 MG Tab.CR PO SCH (06:19)
[2018-02-26] MEDS: traMADol 50 MG Tab PO SCH ×3 (06:19→22:07)
[2018-02-26] MEDS: Enoxaparin 40 MG/0.4 ML Syringe SUBCUT SCH (08:48)
[2018-02-26] MEDS ORDERED: Docusate Sodium 100 MG Cap PO PRN (15:17)
--- NOTE | 2018-02-26 15:36 | PCM.SURGPN ---
- General Info Date of Service: 02/26/18 Functional Status: Reports: Pain Controlled, Tolerating Diet, Ambulating - Review of Systems General: Reports: No Symptoms Pulmonary: Denies: Shortness of Breath Cardiovascular: Reports: Chest Pain (with coughing and movement) - Patient Data Vitals - Most Recent: Last Vital Signs Temp 97.7 F 02/26/18 12:40 Pulse 94 02/26/18 12:40 Resp 18 02/26/18 12:40 BP 111/66 02/26/18 12:40 Pulse Ox 96 02/26/18 12:40 Weight - Most Recent: 87.997 kg I&O - Last 24 Hours: Intake & Output 02/26/18 02/26/18 02/26/18 06:59 14:59 22:59 Intake Total 150 Output Total 556 51 Balance -406 -51 Med Orders - Current: Current Medications Docusate Sodium (Colace) 100 mg PO BID PRN PRN Reason: Constipation Enoxaparin Sodium (Lovenox) 40 mg SUBCUT Q24H [facility] Last Admin: 02/26/18 08:48 Dose: 40 mg Hydromorphone HCl (Dilaudid) 2 mg IVPUSH Q2H PRN PRN Reason: Pain Last Admin: 02/26/18 12:52 Dose: 2 mg Ketorolac Tromethamine (Toradol) 30 mg IVPUSH Q6H [facility] Stop: 03/01/18 19:31 Last Admin: 02/26/18 15:20 Dose: 30 mg Pantoprazole Sodium (Protonix) 40 mg PO 0600 [facility] Last Admin: 02/26/18 06:19 Dose: 40 mg Sodium Chloride (Saline Flush) 10 ml FLUSH ASDIRECTED PRN PRN Reason: Keep Vein Open Last Admin: 02/26/18 15:20 Dose: 10 ml Tramadol HCl (Ultram) 100 mg PO TID@0600,1800,2300 [facility] Last Admin: 02/26/18 06:19 Dose: 100 mg Discontinued Medications Desoximetasone (Topicort 0.25% Crm) 0 gm TOP BID [facility] Last Admin: 02/25/18 10:22 Dose: Not Given Ketorolac Tromethamine (Toradol) 15 mg IM ONETIME STA Stop: 02/24/18 13:22 Last Admin: 02/24/18 13:35 Dose: 15 mg Oxycodone/Acetaminophen (Percocet 325-5 Mg) 1 tab PO ONETIME STA Stop: 02/24/18 14:15 Last Admin: 02/24/18 14:20 Dose: 1 tab Tramadol HCl (Ultram) 50 mg PO Q8H PRN PRN Reason: Pain (moderate 4-6) Last Admin: 02/25/18 09:42 Dose: 50 mg - Exam General: Alert, Oriented Lungs: Clear to Auscultation, Decreased Breath Sounds, Other (No air leak) - Problem List Review Problem List Initiated/Reviewed/Updated: Yes - My Orders Last 24 Hours: Active Orders 24 hr Category Date Time Status Chest Tube Management [RC] Q4HR Care 02/26/18 15:32 Ordered CXR [Chest 1V Frontal] [CR] Routine Exams 02/27/18 08:00 Ordered CXR [Chest 1V Frontal] [CR] Stat Exams 02/26/18 07:00 Taken Docusate Sodium [Colace] Med 02/26/18 15:17 Active 100 mg PO BID PRN traMADol [Ultram] Med 02/25/18 18:00 Active 100 mg PO TID@0600,1800,2300 Medication Orders Docusate Sodium (Colace) 100 mg PO BID PRN PRN Reason: Constipation Enoxaparin Sodium (Lovenox) 40 mg SUBCUT Q24H [facility] Last Admin: 02/26/18 08:48 Dose: 40 mg Admin: 02/25/18 08:17 Dose: 40 mg Hydromorphone HCl (Dilaudid) 2 mg IVPUSH Q2H PRN PRN Reason: Pain Last Admin: 02/26/18 12:52 Dose: 2 mg Admin: 02/26/18 10:33 Dose: 2 mg Admin: 02/26/18 04:40 Dose: 2 mg Admin: 02/25/18 21:07 Dose: 2 mg Admin: 02/25/18 15:23 Dose: 2 mg Admin: 02/25/18 10:37 Dose: 2 mg Admin: 02/25/18 04:31 Dose: 2 mg Admin: 02/24/18 22:25 Dose: 2 mg Admin: 02/24/18 17:29 Dose: 2 mg Ketorolac Tromethamine (Toradol) 30 mg IVPUSH Q6H [facility] Stop: 03/01/18 19:31 Last Admin: 02/26/18 15:20 Dose: 30 mg Admin: 02/26/18 07:20 Dose: 30 mg Admin: 02/26/18 01:19 Dose: 30 mg Admin: 02/25/18 19:13 Dose: 30 mg Admin: 02/25/18 12:50 Dose: 30 mg Admin: 02/25/18 06:30 Dose: 30 mg Admin: 02/25/18 01:23 Dose: 30 mg Admin: 02/24/18 20:07 Dose: 30 mg Pantoprazole Sodium (Protonix) 40 mg PO 0600 [facility] Last Admin: 02/26/18 06:19 Dose: 40 mg Admin: 02/25/18 05:24 Dose: 40 mg Sodium Chloride (Saline Flush) 10 ml FLUSH ASDIRECTED PRN PRN Reason: Keep Vein Open Last Admin: 02/26/18 15:20 Dose: 10 ml Admin: 02/26/18 12:52 Dose: 10 ml Admin: 02/26/18 10:33 Dose: 10 ml Admin: 02/26/18 07:20 Dose: 10 ml Admin: 02/26/18 04:41 Dose: 10 ml Admin: 02/26/18 01:20 Dose: 10 ml Admin: 02/25/18 21:08 Dose: 10 ml Admin: 02/25/18 19:14 Dose: 10 ml Admin: 02/25/18 06:30 Dose: 10 ml Admin: 02/25/18 04:32 Dose: 10 ml Admin: 02/25/18 01:25 Dose: 10 ml Admin: 02/24/18 22:26 Dose: 10 ml Admin: 02/24/18 20:09 Dose: 10 ml Admin: 02/24/18 17:33 Dose: 10 ml Tramadol HCl (Ultram) 100 mg PO TID@0600,1800,2300 [facility] Last Admin: 02/26/18 06:19 Dose: 100 mg Admin: 02/25/18 23:11 Dose: 100 mg Admin: 02/25/18 17:41 Dose: 100 mg - Assessment Assessment (Free Text/Narrative):: Pneumothorax and rib fx's Constipation CRX looks good - Plan Plan (Free Text/Narrative):: Will place CT to [facility] and repeat CRX in am
[2018-02-27] MEDS: Ketorolac 30 MG/ML SDV IVPUSH SCH ×3 (01:17→07:56)
[2018-02-27] MEDS: Sodium Chloride 0.9% 10 ML Syringe FLUSH PRN ×2 (01:19→07:38)
[2018-02-27] MEDS: Pantoprazole 40 MG Tab.CR PO SCH (05:29)
[2018-02-27] MEDS: traMADol 50 MG Tab PO SCH ×3 (05:29→22:47)
[2018-02-27] MEDS: Enoxaparin 40 MG/0.4 ML Syringe SUBCUT SCH (08:00)
[2018-02-27] MEDS: Ibuprofen 600 MG Tab PO SCH ×3 (08:40→21:04)
--- NOTE | 2018-02-27 14:02 | PCM.SURGPN ---
- General Info Date of Service: 02/27/18 Functional Status: Reports: Tolerating Diet, Other (Had BM today). Denies: Pain Controlled - Review of Systems Pulmonary: Reports: Shortness of Breath (with walking this am, pain after coughing) Cardiovascular: Reports: Chest Pain (left anterior chest after coughing this am , better after I put CT back to suction) Gastrointestinal: Reports: No Symptoms - Patient Data Vitals - Most Recent: Last Vital Signs Temp 98.8 F 02/27/18 07:35 Pulse 101 H 02/27/18 07:35 Resp 20 02/27/18 07:35 BP 123/69 02/27/18 07:35 Pulse Ox 96 02/27/18 07:35 Weight - Most Recent: 87.997 kg I&O - Last 24 Hours: Intake & Output 02/26/18 02/27/18 02/27/18 22:59 06:59 14:59 Intake Total 500 300 400 Output Total 51 565 Balance 449 -265 400 Med Orders - Current: Current Medications Docusate Sodium (Colace) 100 mg PO BID PRN PRN Reason: Constipation Last Admin: 02/27/18 08:02 Dose: 100 mg Enoxaparin Sodium (Lovenox) 40 mg SUBCUT Q24H [facility] Last Admin: 02/27/18 08:00 Dose: 40 mg Hydromorphone HCl (Dilaudid) 2 mg IVPUSH Q2H PRN PRN Reason: Pain Last Admin: 02/26/18 12:52 Dose: 2 mg Ibuprofen (Motrin) 600 mg PO TID [facility] Last Admin: 02/27/18 08:40 Dose: 600 mg Pantoprazole Sodium (Protonix) 40 mg PO 0600 [facility] Last Admin: 02/27/18 05:29 Dose: 40 mg Sodium Chloride (Saline Flush) 10 ml FLUSH ASDIRECTED PRN PRN Reason: Keep Vein Open Last Admin: 02/27/18 07:38 Dose: 10 ml Tramadol HCl (Ultram) 100 mg PO TID@0600,1800,2300 [facility] Last Admin: 02/27/18 05:29 Dose: 100 mg Discontinued Medications Desoximetasone (Topicort 0.25% Crm) 0 gm TOP BID [facility] Last Admin: 02/25/18 10:22 Dose: Not Given Ketorolac Tromethamine (Toradol) 15 mg IM ONETIME STA Stop: 02/24/18 13:22 Last Admin: 02/24/18 13:35 Dose: 15 mg Ketorolac Tromethamine (Toradol) 30 mg IVPUSH Q6H [facility] Stop: 03/01/18 19:31 Last Admin: 02/27/18 07:56 Dose: Not Given Oxycodone/Acetaminophen (Percocet 325-5 Mg) 1 tab PO ONETIME STA Stop: 02/24/18 14:15 Last Admin: 02/24/18 14:20 Dose: 1 tab Tramadol HCl (Ultram) 50 mg PO Q8H PRN PRN Reason: Pain (moderate 4-6) Last Admin: 02/25/18 09:42 Dose: 50 mg - Exam Lungs: Clear to Auscultation, Decreased Breath Sounds GI/Abdominal Exam: Soft, Non-Tender - Problem List Review Problem List Initiated/Reviewed/Updated: Yes - My Orders Last 24 Hours: Active Orders 24 hr Category Date Time Status Chest Tube Management [RC] Q4HR Care 02/26/18 15:32 Active CXR [Chest 1V Frontal] [CR] Routine Exams 02/27/18 08:00 Taken Docusate Sodium [Colace] Med 02/26/18 15:17 Active 100 mg PO BID PRN Ibuprofen [Motrin] Med 02/27/18 09:00 Active 600 mg PO TID Medication Orders Docusate Sodium (Colace) 100 mg PO BID PRN PRN Reason: Constipation Last Admin: 02/27/18 08:02 Dose: 100 mg Enoxaparin Sodium (Lovenox) 40 mg SUBCUT Q24H [facility] Last Admin: 02/27/18 08:00 Dose: 40 mg Admin: 02/26/18 08:48 Dose: 40 mg Admin: 02/25/18 08:17 Dose: 40 mg Hydromorphone HCl (Dilaudid) 2 mg IVPUSH Q2H PRN PRN Reason: Pain Last Admin: 02/26/18 12:52 Dose: 2 mg Admin: 02/26/18 10:33 Dose: 2 mg Admin: 02/26/18 04:40 Dose: 2 mg Admin: 02/25/18 21:07 Dose: 2 mg Admin: 02/25/18 15:23 Dose: 2 mg Admin: 02/25/18 10:37 Dose: 2 mg Admin: 02/25/18 04:31 Dose: 2 mg Admin: 02/24/18 22:25 Dose: 2 mg Admin: 02/24/18 17:29 Dose: 2 mg Ibuprofen (Motrin) 600 mg PO TID [facility] Last Admin: 02/27/18 08:40 Dose: 600 mg Pantoprazole Sodium (Protonix) 40 mg PO 0600 [facility] Last Admin: 02/27/18 05:29 Dose: 40 mg Admin: 02/26/18 06:19 Dose: 40 mg Admin: 02/25/18 05:24 Dose: 40 mg Sodium Chloride (Saline Flush) 10 ml FLUSH ASDIRECTED PRN PRN Reason: Keep Vein Open Last Admin: 02/27/18 07:38 Dose: 10 ml Admin: 02/27/18 01:19 Dose: 10 ml Admin: 02/26/18 19:51 Dose: 10 ml Admin: 02/26/18 15:20 Dose: 10 ml Admin: 02/26/18 12:52 Dose: 10 ml Admin: 02/26/18 10:33 Dose: 10 ml Admin: 02/26/18 07:20 Dose: 10 ml Admin: 02/26/18 04:41 Dose: 10 ml Admin: 02/26/18 01:20 Dose: 10 ml Admin: 02/25/18 21:08 Dose: 10 ml Admin: 02/25/18 19:14 Dose: 10 ml Admin: 02/25/18 06:30 Dose: 10 ml Admin: 02/25/18 04:32 Dose: 10 ml Admin: 02/25/18 01:25 Dose: 10 ml Admin: 02/24/18 22:26 Dose: 10 ml Admin: 02/24/18 20:09 Dose: 10 ml Admin: 02/24/18 17:33 Dose: 10 ml Tramadol HCl (Ultram) 100 mg PO TID@0600,1800,2300 [facility] Last Admin: 02/27/18 05:29 Dose: 100 mg Admin: 02/26/18 22:07 Dose: 100 mg Admin: 02/26/18 18:21 Dose: 100 mg Admin: 02/26/18 06:19 Dose: 100 mg Admin: 02/25/18 23:11 Dose: 100 mg Admin: 02/25/18 17:41 Dose: 100 mg - Assessment Assessment (Free Text/Narrative):: CXR show small reaccumulation of PTX - Plan Plan (Free Text/Narrative):: Will place CT back to suction
[2018-02-28] MEDS ORDERED: Acetaminophen/HYDROcodone 325-5 MG Tab PO ONE (03:36)
[2018-02-28] MEDS: Pantoprazole 40 MG Tab.CR PO SCH (06:14)
[2018-02-28] MEDS: traMADol 50 MG Tab PO SCH ×3 (06:17→23:02)
[2018-02-28] MEDS: Ibuprofen 600 MG Tab PO SCH ×3 (08:27→20:29)
[2018-02-28] MEDS: Enoxaparin 40 MG/0.4 ML Syringe SUBCUT SCH (08:27)
--- NOTE | 2018-02-28 09:20 | PCM.SURGPN ---
- General Info Date of Service: 02/28/18 Functional Status: Reports: Pain Controlled (having pain in right upper chest with deep breathing) - Review of Systems Pulmonary: Denies: Shortness of Breath - Patient Data Vitals - Most Recent: Last Vital Signs Temp 98.4 F 02/28/18 08:20 Pulse 90 02/28/18 08:20 Resp 12 02/28/18 08:20 BP 108/62 02/28/18 08:20 Pulse Ox 98 02/28/18 08:20 Weight - Most Recent: 194 lb I&O - Last 24 Hours: Intake & Output 02/27/18 02/28/18 02/28/18 22:59 06:59 14:59 Output Total 400 Balance -400 Med Orders - Current: Current Medications Docusate Sodium (Colace) 100 mg PO BID PRN PRN Reason: Constipation Last Admin: 02/27/18 08:02 Dose: 100 mg Enoxaparin Sodium (Lovenox) 40 mg SUBCUT Q24H [facility] Last Admin: 02/28/18 08:27 Dose: 40 mg Hydromorphone HCl (Dilaudid) 2 mg IVPUSH Q2H PRN PRN Reason: Pain Last Admin: 02/26/18 12:52 Dose: 2 mg Ibuprofen (Motrin) 600 mg PO TID [facility] Last Admin: 02/28/18 08:27 Dose: 600 mg Pantoprazole Sodium (Protonix) 40 mg PO 0600 [facility] Last Admin: 02/28/18 06:14 Dose: 40 mg Sodium Chloride (Saline Flush) 10 ml FLUSH ASDIRECTED PRN PRN Reason: Keep Vein Open Last Admin: 02/27/18 07:38 Dose: 10 ml Tramadol HCl (Ultram) 100 mg PO TID@0600,1800,2300 [facility] Last Admin: 02/28/18 06:17 Dose: 100 mg Discontinued Medications Hydrocodone Bitart/Acetaminophen ([place] 325-5 Mg) 1 tab PO ONETIME ONE Stop: 02/28/18 03:37 Last Admin: 02/28/18 03:53 Dose: 1 tab Desoximetasone (Topicort 0.25% Crm) 0 gm TOP BID [facility] Last Admin: 02/25/18 10:22 Dose: Not Given Ketorolac Tromethamine (Toradol) 15 mg IM ONETIME STA Stop: 02/24/18 13:22 Last Admin: 02/24/18 13:35 Dose: 15 mg Ketorolac Tromethamine (Toradol) 30 mg IVPUSH Q6H [facility] Stop: 03/01/18 19:31 Last Admin: 02/27/18 07:56 Dose: Not Given Oxycodone/Acetaminophen (Percocet 325-5 Mg) 1 tab PO ONETIME STA Stop: 02/24/18 14:15 Last Admin: 02/24/18 14:20 Dose: 1 tab Tramadol HCl (Ultram) 50 mg PO Q8H PRN PRN Reason: Pain (moderate 4-6) Last Admin: 02/25/18 09:42 Dose: 50 mg - Exam General: Alert, Oriented Lungs: Normal Respiratory Effort (Chest tube shows no bubbling and no movement on Heimlich Valve with deep breathing) - Problem List Review Problem List Initiated/Reviewed/Updated: Yes - My Orders Last 24 Hours: Active Orders 24 hr Category Date Time Status Chest 2V [CR] Routine Exams 02/28/18 06:00 Ordered Ibuprofen [Motrin] Med 02/27/18 09:00 Active 600 mg PO TID Medication Orders Docusate Sodium (Colace) 100 mg PO BID PRN PRN Reason: Constipation Last Admin: 02/27/18 08:02 Dose: 100 mg Enoxaparin Sodium (Lovenox) 40 mg SUBCUT Q24H [facility] Last Admin: 02/28/18 08:27 Dose: 40 mg Admin: 02/27/18 08:00 Dose: 40 mg Admin: 02/26/18 08:48 Dose: 40 mg Admin: 02/25/18 08:17 Dose: 40 mg Hydromorphone HCl (Dilaudid) 2 mg IVPUSH Q2H PRN PRN Reason: Pain Last Admin: 02/26/18 12:52 Dose: 2 mg Admin: 02/26/18 10:33 Dose: 2 mg Admin: 02/26/18 04:40 Dose: 2 mg Admin: 02/25/18 21:07 Dose: 2 mg Admin: 02/25/18 15:23 Dose: 2 mg Admin: 02/25/18 10:37 Dose: 2 mg Admin: 02/25/18 04:31 Dose: 2 mg Admin: 02/24/18 22:25 Dose: 2 mg Admin: 02/24/18 17:29 Dose: 2 mg Ibuprofen (Motrin) 600 mg PO TID [facility] Last Admin: 02/28/18 08:27 Dose: 600 mg Admin: 02/27/18 21:04 Dose: 600 mg Admin: 02/27/18 14:49 Dose: 600 mg Admin: 02/27/18 08:40 Dose: 600 mg Pantoprazole Sodium (Protonix) 40 mg PO 0600 [facility] Last Admin: 02/28/18 06:14 Dose: 40 mg Admin: 02/27/18 05:29 Dose: 40 mg Admin: 02/26/18 06:19 Dose: 40 mg Admin: 02/25/18 05:24 Dose: 40 mg Sodium Chloride (Saline Flush) 10 ml FLUSH ASDIRECTED PRN PRN Reason: Keep Vein Open Last Admin: 02/27/18 07:38 Dose: 10 ml Admin: 02/27/18 01:19 Dose: 10 ml Admin: 02/26/18 19:51 Dose: 10 ml Admin: 02/26/18 15:20 Dose: 10 ml Admin: 02/26/18 12:52 Dose: 10 ml Admin: 02/26/18 10:33 Dose: 10 ml Admin: 02/26/18 07:20 Dose: 10 ml Admin: 02/26/18 04:41 Dose: 10 ml Admin: 02/26/18 01:20 Dose: 10 ml Admin: 02/25/18 21:08 Dose: 10 ml Admin: 02/25/18 19:14 Dose: 10 ml Admin: 02/25/18 06:30 Dose: 10 ml Admin: 02/25/18 04:32 Dose: 10 ml Admin: 02/25/18 01:25 Dose: 10 ml Admin: 02/24/18 22:26 Dose: 10 ml Admin: 02/24/18 20:09 Dose: 10 ml Admin: 02/24/18 17:33 Dose: 10 ml Tramadol HCl (Ultram) 100 mg PO TID@0600,1800,2300 [facility] Last Admin: 02/28/18 06:17 Dose: 100 mg Admin: 02/27/18 22:47 Dose: 100 mg Admin: 02/27/18 18:05 Dose: 100 mg Admin: 02/27/18 05:29 Dose: 100 mg Admin: 02/26/18 22:07 Dose: 100 mg Admin: 02/26/18 18:21 Dose: 100 mg Admin: 02/26/18 06:19 Dose: 100 mg Admin: 02/25/18 23:11 Dose: 100 mg Admin: 02/25/18 17:41 Dose: 100 mg - Assessment Assessment (Free Text/Narrative):: Rib Fractures and Pneumothorax post fall - Plan Plan (Free Text/Narrative):: Await repeat chest x-ray this morning and if good will try clamping Chest Tube again
--- NOTE | 2018-02-28 13:09 | PCM.SURGPN ---
- General Info Date of Service: 02/28/18 - Review of Systems Systems Review Comment:: CXR shows full expansion of lung without sign of complication - Patient Data Vitals - Most Recent: Last Vital Signs Temp 98.4 F 02/28/18 08:20 Pulse 90 02/28/18 08:20 Resp 12 02/28/18 08:20 BP 108/62 02/28/18 08:20 Pulse Ox 98 02/28/18 08:20 Weight - Most Recent: 194 lb I&O - Last 24 Hours: Intake & Output 02/27/18 02/28/18 02/28/18 22:59 06:59 14:59 Output Total 400 Balance -400 Med Orders - Current: Current Medications Hydrocodone Bitart/Acetaminophen (Gage 325-5 Mg) 1 tab PO DAILY [facility] Hydrocodone Bitart/Acetaminophen (Gage 325-5 Mg) 1 tab PO Q6H PRN PRN Reason: Pain Docusate Sodium (Colace) 100 mg PO BID PRN PRN Reason: Constipation Last Admin: 02/27/18 08:02 Dose: 100 mg Enoxaparin Sodium (Lovenox) 40 mg SUBCUT Q24H [facility] Last Admin: 02/28/18 08:27 Dose: 40 mg Hydromorphone HCl (Dilaudid) 2 mg IVPUSH Q2H PRN PRN Reason: Pain Last Admin: 02/26/18 12:52 Dose: 2 mg Ibuprofen (Motrin) 600 mg PO TID [facility] Last Admin: 02/28/18 08:27 Dose: 600 mg Pantoprazole Sodium (Protonix) 40 mg PO 0600 [facility] Last Admin: 02/28/18 06:14 Dose: 40 mg Sodium Chloride (Saline Flush) 10 ml FLUSH ASDIRECTED PRN PRN Reason: Keep Vein Open Last Admin: 02/27/18 07:38 Dose: 10 ml Tramadol HCl (Ultram) 100 mg PO TID@0600,1800,2300 [facility] Last Admin: 02/28/18 06:17 Dose: 100 mg Discontinued Medications Hydrocodone Bitart/Acetaminophen (Gage 325-5 Mg) 1 tab PO ONETIME ONE Stop: 02/28/18 03:37 Last Admin: 02/28/18 03:53 Dose: 1 tab Desoximetasone (Topicort 0.25% Crm) 0 gm TOP BID [facility] Last Admin: 02/25/18 10:22 Dose: Not Given Ketorolac Tromethamine (Toradol) 15 mg IM ONETIME STA Stop: 02/24/18 13:22 Last Admin: 02/24/18 13:35 Dose: 15 mg Ketorolac Tromethamine (Toradol) 30 mg IVPUSH Q6H [facility] Stop: 03/01/18 19:31 Last Admin: 02/27/18 07:56 Dose: Not Given Oxycodone/Acetaminophen (Percocet 325-5 Mg) 1 tab PO ONETIME STA Stop: 02/24/18 14:15 Last Admin: 02/24/18 14:20 Dose: 1 tab Tramadol HCl (Ultram) 50 mg PO Q8H PRN PRN Reason: Pain (moderate 4-6) Last Admin: 02/25/18 09:42 Dose: 50 mg - Problem List Review Problem List Initiated/Reviewed/Updated: Yes - My Orders Last 24 Hours: Active Orders 24 hr Category Date Time Status Chest 2V [CR] Routine Exams 02/28/18 06:00 Taken Acetaminophen/HYDROcodone [Gage 325-5 MG] Med 02/28/18 13:15 Ordered 1 tab PO DAILY Acetaminophen/HYDROcodone [Gage 325-5 MG] Med 02/28/18 13:07 Ordered 1 tab PO Q6H PRN Medication Orders Hydrocodone Bitart/Acetaminophen (Gage 325-5 Mg) 1 tab PO DAILY [facility] Hydrocodone Bitart/Acetaminophen (Gage 325-5 Mg) 1 tab PO Q6H PRN PRN Reason: Pain Docusate Sodium (Colace) 100 mg PO BID PRN PRN Reason: Constipation Last Admin: 02/27/18 08:02 Dose: 100 mg Enoxaparin Sodium (Lovenox) 40 mg SUBCUT Q24H [facility] Last Admin: 02/28/18 08:27 Dose: 40 mg Admin: 02/27/18 08:00 Dose: 40 mg Admin: 02/26/18 08:48 Dose: 40 mg Admin: 02/25/18 08:17 Dose: 40 mg Hydromorphone HCl (Dilaudid) 2 mg IVPUSH Q2H PRN PRN Reason: Pain Last Admin: 02/26/18 12:52 Dose: 2 mg Admin: 02/26/18 10:33 Dose: 2 mg Admin: 02/26/18 04:40 Dose: 2 mg Admin: 02/25/18 21:07 Dose: 2 mg Admin: 02/25/18 15:23 Dose: 2 mg Admin: 02/25/18 10:37 Dose: 2 mg Admin: 02/25/18 04:31 Dose: 2 mg Admin: 02/24/18 22:25 Dose: 2 mg Admin: 02/24/18 17:29 Dose: 2 mg Ibuprofen (Motrin) 600 mg PO TID [facility] Last Admin: 02/28/18 08:27 Dose: 600 mg Admin: 02/27/18 21:04 Dose: 600 mg Admin: 02/27/18 14:49 Dose: 600 mg Admin: 02/27/18 08:40 Dose: 600 mg Pantoprazole Sodium (Protonix) 40 mg PO 0600 [facility] Last Admin: 02/28/18 06:14 Dose: 40 mg Admin: 02/27/18 05:29 Dose: 40 mg Admin: 02/26/18 06:19 Dose: 40 mg Admin: 02/25/18 05:24 Dose: 40 mg Sodium Chloride (Saline Flush) 10 ml FLUSH ASDIRECTED PRN PRN Reason: Keep Vein Open Last Admin: 02/27/18 07:38 Dose: 10 ml Admin: 02/27/18 01:19 Dose: 10 ml Admin: 02/26/18 19:51 Dose: 10 ml Admin: 02/26/18 15:20 Dose: 10 ml Admin: 02/26/18 12:52 Dose: 10 ml Admin: 02/26/18 10:33 Dose: 10 ml Admin: 02/26/18 07:20 Dose: 10 ml Admin: 02/26/18 04:41 Dose: 10 ml Admin: 02/26/18 01:20 Dose: 10 ml Admin: 02/25/18 21:08 Dose: 10 ml Admin: 02/25/18 19:14 Dose: 10 ml Admin: 02/25/18 06:30 Dose: 10 ml Admin: 02/25/18 04:32 Dose: 10 ml Admin: 02/25/18 01:25 Dose: 10 ml Admin: 02/24/18 22:26 Dose: 10 ml Admin: 02/24/18 20:09 Dose: 10 ml Admin: 02/24/18 17:33 Dose: 10 ml Tramadol HCl (Ultram) 100 mg PO TID@0600,1800,2300 [facility] Last Admin: 02/28/18 06:17 Dose: 100 mg Admin: 02/27/18 22:47 Dose: 100 mg Admin: 02/27/18 18:05 Dose: 100 mg Admin: 02/27/18 05:29 Dose: 100 mg Admin: 02/26/18 22:07 Dose: 100 mg Admin: 02/26/18 18:21 Dose: 100 mg Admin: 02/26/18 06:19 Dose: 100 mg Admin: 02/25/18 23:11 Dose: 100 mg Admin: 02/25/18 17:41 Dose: 100 mg - Assessment Assessment (Free Text/Narrative):: Chest tube occluded - Plan Plan (Free Text/Narrative):: Will recheck CXR in am
[2018-02-28] MEDS ORDERED: Acetaminophen/HYDROcodone 325-5 MG Tab PO SCH (13:15)
[2018-03-01] MEDS: Acetaminophen/HYDROcodone 325-5 MG Tab PO PRN ×2 (02:24→08:39)
[2018-03-01] MEDS: Pantoprazole 40 MG Tab.CR PO SCH (06:19)
[2018-03-01] MEDS: traMADol 50 MG Tab PO SCH (06:20)
[2018-03-01] MEDS: Enoxaparin 40 MG/0.4 ML Syringe SUBCUT SCH (08:34)
[2018-03-01] MEDS: Ibuprofen 600 MG Tab PO SCH (08:40)
[2018-03-01 08:48] VITALS: BP 116/69
--- NOTE | 2018-03-01 10:34 | PCM.SURGPN ---
- General Info Date of Service: 03/01/18 Functional Status: Reports: Pain Controlled (Pain from fractures slowly improving) - Review of Systems Pulmonary: Reports: Pleuritic Chest Pain (from fractures but slowly improving). Denies: Shortness of Breath Gastrointestinal: Reports: No Symptoms - Patient Data Vitals - Most Recent: Last Vital Signs Temp 98.5 F 03/01/18 08:30 Pulse 84 03/01/18 08:30 Resp 12 03/01/18 08:30 BP 116/69 03/01/18 08:30 Pulse Ox 97 03/01/18 08:30 Weight - Most Recent: 194 lb Med Orders - Current: Current Medications Hydrocodone Bitart/Acetaminophen (Edson 325-5 Mg) 1 tab PO DAILY@1200 [facility] Last Admin: 02/28/18 14:13 Dose: 1 tab Hydrocodone Bitart/Acetaminophen (Edson 325-5 Mg) 1 tab PO Q6H PRN PRN Reason: Pain Last Admin: 03/01/18 08:39 Dose: 1 tab Docusate Sodium (Colace) 100 mg PO BID PRN PRN Reason: Constipation Last Admin: 02/27/18 08:02 Dose: 100 mg Enoxaparin Sodium (Lovenox) 40 mg SUBCUT Q24H [facility] Last Admin: 03/01/18 08:34 Dose: 40 mg Hydromorphone HCl (Dilaudid) 2 mg IVPUSH Q2H PRN PRN Reason: Pain Last Admin: 02/26/18 12:52 Dose: 2 mg Ibuprofen (Motrin) 600 mg PO TID [facility] Last Admin: 03/01/18 08:40 Dose: 600 mg Pantoprazole Sodium (Protonix) 40 mg PO 0600 [facility] Last Admin: 03/01/18 06:19 Dose: 40 mg Sodium Chloride (Saline Flush) 10 ml FLUSH ASDIRECTED PRN PRN Reason: Keep Vein Open Last Admin: 02/27/18 07:38 Dose: 10 ml Tramadol HCl (Ultram) 100 mg PO TID@0600,1800,2300 [facility] Last Admin: 03/01/18 06:20 Dose: 100 mg Discontinued Medications Hydrocodone Bitart/Acetaminophen (Edson 325-5 Mg) 1 tab PO ONETIME ONE Stop: 02/28/18 03:37 Last Admin: 02/28/18 03:53 Dose: 1 tab Desoximetasone (Topicort 0.25% Crm) 0 gm TOP BID [facility] Last Admin: 02/25/18 10:22 Dose: Not Given Ketorolac Tromethamine (Toradol) 15 mg IM ONETIME STA Stop: 02/24/18 13:22 Last Admin: 02/24/18 13:35 Dose: 15 mg Ketorolac Tromethamine (Toradol) 30 mg IVPUSH Q6H [facility] Stop: 03/01/18 19:31 Last Admin: 02/27/18 07:56 Dose: Not Given Oxycodone/Acetaminophen (Percocet 325-5 Mg) 1 tab PO ONETIME STA Stop: 02/24/18 14:15 Last Admin: 02/24/18 14:20 Dose: 1 tab Tramadol HCl (Ultram) 50 mg PO Q8H PRN PRN Reason: Pain (moderate 4-6) Last Admin: 02/25/18 09:42 Dose: 50 mg - Exam General: Alert, Oriented Lungs: Normal Respiratory Effort Physical Findings Comment:: CXR from this AM shows right lung fully expanded even with Chest Tube occluded since yesterday - Chest Tube removed - and follow up Chest Xray shows no sign of complication - Problem List Review Problem List Initiated/Reviewed/Updated: Yes - My Orders Last 24 Hours: Active Orders 24 hr Category Date Time Status CXR [Chest 1V Frontal] [CR] Routine Exams 03/01/18 10:24 Ordered Chest 1V Frontal [CR] Routine Exams 03/01/18 09:01 Taken Acetaminophen/HYDROcodone [Edson 325-5 MG] Med 02/28/18 13:15 Active 1 tab PO DAILY@1200 Acetaminophen/HYDROcodone [Edson 325-5 MG] Med 02/28/18 13:07 Active 1 tab PO Q6H PRN Medication Orders Hydrocodone Bitart/Acetaminophen (Edson 325-5 Mg) 1 tab PO DAILY@1200 [facility] Last Admin: 02/28/18 14:13 Dose: 1 tab Hydrocodone Bitart/Acetaminophen (Edson 325-5 Mg) 1 tab PO Q6H PRN PRN Reason: Pain Last Admin: 03/01/18 08:39 Dose: 1 tab Admin: 03/01/18 02:24 Dose: 1 tab Docusate Sodium (Colace) 100 mg PO BID PRN PRN Reason: Constipation Last Admin: 02/27/18 08:02 Dose: 100 mg Enoxaparin Sodium (Lovenox) 40 mg SUBCUT Q24H [facility] Last Admin: 03/01/18 08:34 Dose: 40 mg Admin: 02/28/18 08:27 Dose: 40 mg Admin: 02/27/18 08:00 Dose: 40 mg Admin: 02/26/18 08:48 Dose: 40 mg Admin: 02/25/18 08:17 Dose: 40 mg Hydromorphone HCl (Dilaudid) 2 mg IVPUSH Q2H PRN PRN Reason: Pain Last Admin: 02/26/18 12:52 Dose: 2 mg Admin: 02/26/18 10:33 Dose: 2 mg Admin: 02/26/18 04:40 Dose: 2 mg Admin: 02/25/18 21:07 Dose: 2 mg Admin: 02/25/18 15:23 Dose: 2 mg Admin: 02/25/18 10:37 Dose: 2 mg Admin: 02/25/18 04:31 Dose: 2 mg Admin: 02/24/18 22:25 Dose: 2 mg Admin: 02/24/18 17:29 Dose: 2 mg Ibuprofen (Motrin) 600 mg PO TID [facility] Last Admin: 03/01/18 08:40 Dose: 600 mg Admin: 02/28/18 20:29 Dose: 600 mg Admin: 02/28/18 14:13 Dose: 600 mg Admin: 02/28/18 08:27 Dose: 600 mg Admin: 02/27/18 21:04 Dose: 600 mg Admin: 02/27/18 14:49 Dose: 600 mg Admin: 02/27/18 08:40 Dose: 600 mg Pantoprazole Sodium (Protonix) 40 mg PO 0600 [facility] Last Admin: 03/01/18 06:19 Dose: 40 mg Admin: 02/28/18 06:14 Dose: 40 mg Admin: 02/27/18 05:29 Dose: 40 mg Admin: 02/26/18 06:19 Dose: 40 mg Admin: 02/25/18 05:24 Dose: 40 mg Sodium Chloride (Saline Flush) 10 ml FLUSH ASDIRECTED PRN PRN Reason: Keep Vein Open Last Admin: 02/27/18 07:38 Dose: 10 ml Admin: 02/27/18 01:19 Dose: 10 ml Admin: 02/26/18 19:51 Dose: 10 ml Admin: 02/26/18 15:20 Dose: 10 ml Admin: 02/26/18 12:52 Dose: 10 ml Admin: 02/26/18 10:33 Dose: 10 ml Admin: 02/26/18 07:20 Dose: 10 ml Admin: 02/26/18 04:41 Dose: 10 ml Admin: 02/26/18 01:20 Dose: 10 ml Admin: 02/25/18 21:08 Dose: 10 ml Admin: 02/25/18 19:14 Dose: 10 ml Admin: 02/25/18 06:30 Dose: 10 ml Admin: 02/25/18 04:32 Dose: 10 ml Admin: 02/25/18 01:25 Dose: 10 ml Admin: 02/24/18 22:26 Dose: 10 ml Admin: 02/24/18 20:09 Dose: 10 ml Admin: 02/24/18 17:33 Dose: 10 ml Tramadol HCl (Ultram) 100 mg PO TID@0600,1800,2300 [facility] Last Admin: 03/01/18 06:20 Dose: 100 mg Admin: 02/28/18 23:02 Dose: 100 mg Admin: 02/28/18 18:25 Dose: 100 mg Admin: 02/28/18 06:17 Dose: 100 mg Admin: 02/27/18 22:47 Dose: 100 mg Admin: 02/27/18 18:05 Dose: 100 mg Admin: 02/27/18 05:29 Dose: 100 mg Admin: 02/26/18 22:07 Dose: 100 mg Admin: 02/26/18 18:21 Dose: 100 mg Admin: 02/26/18 06:19 Dose: 100 mg Admin: 02/25/18 23:11 Dose: 100 mg Admin: 02/25/18 17:41 Dose: 100 mg - Assessment Assessment (Free Text/Narrative):: S/P Fall with rib fractures and pneumothorax - lung now healed and pneumothorax resolved Scapula fracture Chronic Back Pain - on Pain Contract - Plan Plan (Free Text/Narrative):: Chest Tube Removed - Post removal Chest Xray shows no sign of complication Discharge Follow up with Surgery and Primary provider later this week Patient has a supply of pain medication at home
== END 2018-03-01 12:05 | disposition home or self-care (01) | DRG 200 ==
LOC: FB.ED 12:58 → FB.MS 16:13
PROVIDERS: ADMIT Surgery; ATTEND Family Medicine
PROC: 0W9930Z Drainage of Right Pleural Cavity with Drainage Device, Percutaneous Approach (ICD-10-PCS; principal; 2018-02-24)
DX: S27.0XXA Traumatic pneumothorax, initial encounter (principal); S22.41XA Multiple fractures of ribs, right side, initial encounter for closed fracture; S42.101A Fracture of unspecified part of scapula, right shoulder, initial encounter for closed fracture; W11.XXXA Fall on and from ladder, initial encounter; H54.7 Unspecified visual loss; E78.00 Pure hypercholesterolemia, unspecified; R10.13 Epigastric pain; E61.1 Iron deficiency; M54.2 Cervicalgia; E66.1 Drug-induced obesity; Z88.1 Allergy status to other antibiotic agents; Z91.041 Radiographic dye allergy status; S20.311A Abrasion of right front wall of thorax, initial encounter; M25.511 Pain in right shoulder; M54.9 Dorsalgia, unspecified; G89.29 Other chronic pain; R06.02 Shortness of breath; R07.9 Chest pain, unspecified; M79.10 Myalgia, unspecified site; Z79.899 Other long term (current) drug therapy; K59.00 Constipation, unspecified
CPT/HCPCS: 32551; 36415; 70450; 71045; 71046; 71250; 72125; 80048; 81001; 82550; 85025; 85027; 85610; 94150; 96372; 99285; A9270-GY; J1170; J1650; J1885

== ENCOUNTER 2019-04-22 08:13 | Day surgery (SDC) | payer MEDICARE, OTHER ==
[~2019-04-22 08:13] MED LIST: Lactated Ringers 1,000 ML IV SCH; Sodium Chloride 0.9% 10 ML Syringe FLUSH PRN
[2019-04-22] MEDS ORDERED: Lidocaine 2% 5 ML SDV INJECT ONE (08:14)
[2019-04-22] MEDS ORDERED: Propofol 200 MG/20 ML SDV IV ONE (08:14)
--- NOTE | 2019-04-22 09:58 | PCM.OPNOTE ---
- General Post-Op/Procedure Note Date of Surgery/Procedure: 04/22/19 Operative Procedure(s): egd with cold forcep biopsy Findings: gastritis Schatzki's ring esophagitis Pre Op Diagnosis: abd pain epigastric Post-Op Diagnosis: gastritis. Schatzki's ring. esophagitis Anesthesia Technique: [facility] [place] Primary Surgeon: Emil Valles Anesthesia Provider: Raleigh Blackburn Pathology: stomach and esophagus Complications: None Condition: Good Free Text/Narrative:: see dictation
[2019-04-22 10:28] VITALS: BP 128/75; PULSE 71
--- NOTE | 2019-04-22 11:22 | OR ---
DATE OF OPERATION: 04/22/2019 SURGEON: Emil Valles MD PROCEDURE PERFORMED: Upper endoscopy with cold forceps biopsy. PREOPERATIVE DIAGNOSIS: History of epigastric abdominal pain. POSTOPERATIVE DIAGNOSES: Gastritis, esophagitis, and Schatzki's ring. INDICATIONS FOR PROCEDURE: This is a 68-year-old white male, referred with a complaint of some epigastric abdominal discomfort. He was offered and accepted an upper endoscopy to workup this issue. DESCRIPTION OF OPERATION: After an excellent IV sedation was administered, bite block was inserted, flexible endoscope was passed down the patient's esophagus. Stomach was insufflated. Scope passed through the pylorus, second portion of duodenum and slowly withdrawn. The following findings were noted. Stomach demonstrated some diffuse gastritis. Several biopsies were taken. GE junction, the patient has what appears to be a Schatzki's ring. Circumferential biopsies were taken of this area as well. Remainder of the esophageal exam was unremarkable except for some mild inflammation in this area. Results will be sent to the patient by letter. /[id number] /MODL
== END 2019-04-22 10:40 | disposition home or self-care (01) ==
LOC: FB.SDS 08:13
PROVIDERS: ATTEND Surgery
DX: K29.50 Unspecified chronic gastritis without bleeding (principal); K20.9 Esophagitis, unspecified; K22.2 Esophageal obstruction; Z79.899 Other long term (current) drug therapy; Z88.1 Allergy status to other antibiotic agents; Z91.041 Radiographic dye allergy status
CPT/HCPCS: 00731; 43239; 88305; 88313; 88342; J2001; J2704; J7120